=== PATIENT | female | born 1990 | race Caucasian/White ===

== ENCOUNTER 2024-04-11 23:39 | Emergency (ER) | payer OTHER, SELFPAY ==
[2024-04-11 23:56] VITALS: BP 116/66; PULSE 63; TEMP 36.7; O2SAT 100; BMI 32.8
[2024-04-12 00:25] LABS: Internal Control Within Normal Limits; SARS-CoV-2 Ag NEGATIVE (NEGATIVE)
--- NOTE | 2024-04-12 00:52 | ED.URI1 ---
HPI - URI/Sore Throat General Chief Complaint: Upper Respiratory Infection Stated Complaint: COLD TYPE SYP Time Seen by Provider: 04/11/24 23:52 Source: patient and family Limitations: no limitations History of Present Illness HPI Narrative: This 33-year-old female presents for evaluation of upper respiratory symptoms including cough and nasal congestion, mild headache and sore throat. Her daughter tested positive for COVID-19 earlier today. The patient denies any chest pain or shortness of breath. She denies any nausea vomiting or diarrhea. She states she did have 1 COVID-19 vaccination many years ago and also had COVID-19 in the past. She denies the need for any pain medication or cough medication. Related Data Home Medications ?Medication ?Instructions ?Recorded ?Confirmed aripiprazole 2 mg tablet mg 04/11/24 duloxetine 30 mg capsule,delayed mg PO 04/11/24 release ergocalciferol (vitamin D2) 1,250 04/11/24 mcg (50,000 unit) capsule fluticasone propionate 50 intranasal 04/11/24 mcg/actuation nasal spray,suspension loratadine 10 mg tablet mg 04/11/24 omeprazole 20 mg capsule,delayed mg 04/11/24 release Allergies Allergy/AdvReac Type Severity Reaction Status Date / Time No Known Drug Allergies Allergy Verified 04/11/24 23:57 Review of Systems ROS Status of ROS 10 or more systems reviewed and unremarkable except as noted in history and below Exam Narrative Exam Narrative: Vital signs and Nursing Notes reviewed: Patient is afebrile with a normal pulse, normal blood pressure, she is not hypoxic with pulse ox of 100% on room air General: Awake, alert, oriented, no acute distress, sitting comfortably in a chair, no respiratory distress, she is speaking in complete sentences HEENT: Normocephalic atraumatic, mucous membranes are moist and pink, eyes are clear, normal conjunctiva, vision is grossly intact, posterior pharynx is normal in appearance. Diffuse periodontal disease noted Neck: Supple, no meningeal signs, no anterior or posterior cervical lymphadenopathy Chest: Lungs are clear to auscultation with good air entry, there is no wheezing rhonchi or rales appreciated no accessory muscle use, patient is speaking in complete sentences-no chest wall tenderness to palpation CVS: Regular rate and rhythm S1-S2, no murmurs rubs or gallops, pulses are brisk and equal bilaterally Extremities: Moving all extremities, no lower extremity tenderness or swelling noted, negative Homans' sign, pulses are brisk and equal bilaterally Skin: Normal in appearance without rash,pallor, petechiae or purpura Neuro: No focal deficits Constitutional Vital Signs, click to edit/add: Last Vital Signs Temp 98.1 F 04/11/24 23:56 Pulse 63 04/11/24 23:56 Resp 16 04/11/24 23:56 BP 116/66 04/11/24 23:56 Pulse Ox 100 04/11/24 23:56 O2 Del Method Room Air 04/11/24 23:56 Course Vital Signs Vital signs: Vital Signs Temperature 98.1 F 04/11/24 23:56 Pulse Rate 63 04/11/24 23:56 Respiratory Rate 16 04/11/24 23:56 Blood Pressure 116/66 04/11/24 23:56 Pulse Oximetry 100 04/11/24 23:56 Oxygen Delivery Method Room Air 04/11/24 23:56 Temperature 98.1 F 04/11/24 23:56 Pulse Rate 63 04/11/24 23:56 Respiratory Rate 16 04/11/24 23:56 Blood Pressure 116/66 04/11/24 23:56 Pulse Oximetry 100 04/11/24 23:56 Oxygen Delivery Method Room Air 04/11/24 23:56 MDM - URI/Sore Throat MDM Narrative Medical decision making narrative: This patient presents for evaluation of upper respiratory symptoms. She has been seen in conjunction with her 2 daughters 1 of whom tested positive for COVID-19 and 1 who has upper respiratory symptoms. Her COVID-19 test is negative. I explained to her that she may not have enough of a viral load for the test to be positive but she likely has COVID-19 as she is symptomatic and her daughter with whom she lives tested positive. She declined the need for any cough medication or pain medication in the emergency department. Her COVID-19 test here was negative. In light of her symptoms and exposure she will be given a note for work for the next 5 days to quarantine. She was encouraged to return to the emergency department for severe shortness of breath, difficulty breathing, chest pain or any concerns. Lab Data Attestation: I reviewed the patient's lab results. Labs: Lab Results 04/11/24 Range/Units 23:45 SARS-CoV-2 Ag (CV2AG) Negative (NEGATIVE) Discharge Plan Discharge Chief Complaint: Upper Respiratory Infection Clinical Impression: Upper respiratory infection, Close exposure to COVID-19 virus Patient Disposition: Home, Self-Care Time of Disposition Decision: 00:56 Condition: Good Prescriptions / Home Meds: No Action omeprazole 20 mg capsule,delayed release(DR/EC) ergocalciferol (vitamin D2) 1,250 mcg (50,000 unit) capsule fluticasone propionate 50 mcg/actuation spray,suspension INTRANASAL loratadine 10 mg tablet duloxetine 30 mg capsule,delayed release(DR/EC) PO aripiprazole 2 mg tablet Print Language: [place]ian Instructions: COVID-19 (Coronavirus Disease 2019) (ED), Safely Care for Someone Who Has COVID-19 (ED) Referrals: Physician,Non-Staff, MD [Primary Care Provider] - 1 week
== END 2024-04-12 01:41 | disposition home or self-care (01) ==
PROVIDERS: Emergency Provider Emergency Medicine
DX: J06.9 Acute upper respiratory infection, unspecified (principal); Z20.822 Contact with and (suspected) exposure to COVID-19
CPT/HCPCS: 87811; 99283